=== PATIENT | female | born 1970 | race Caucasian/White ===

== ENCOUNTER 2018-04-26 06:20 | Day surgery (SDC) | payer OTHER | END 2018-04-26 09:05 | disposition home or self-care (01) | LOC: AMB-ENDOS 06:20 | DX: K57.30 Diverticulosis of large intestine without perforation or abscess without bleeding (principal); K64.8 Other hemorrhoids; Z12.11 Encounter for screening for malignant neoplasm of colon ==

== ENCOUNTER 2023-12-30 07:30 | Inpatient (IN) | payer OTHER ==
[~2023-12-30] VITALS: Ht 170.2 cm; Wt 84.4 kg
[2023-12-31 10:02] LABS: PH,URINE 7.5 (5.0-8.0); URINE APPEARANCE Clear; URINE BILIRRUBIN Negative (NEGATIVE); URINE BLOOD Negative; URINE COLOR Yellow; URINE GLUCOSE Negative (NEGATIVE); URINE LEUKOCYTE Negative; URINE NITRATE Negative; URINE PROTEIN Negative (NEGATIVE); URINE UROBILINOGEN 0.2 E.U./dl
[2023-12-31 10:03] LABS: URINE BACTERIA 1649.3 uL (0.0-1933); URINE EPITHELIAL CELLS 15.7 uL (0.0-38.8); URINE RBC 11.4 uL (0.0-20.8); URINE WBC 14.2 uL (0.0-23.2)
[2023-12-31 10:05] LABS: HEMATOCRIT 40.9 % (36.0-45.00); HEMOGLOBIN 13.7 g/dL (12.0-15.00); MEAN CELL VOLUME 83.2 fL (80.00-100.00); MEAN CORPUSCULAR HEMOGLOBIN 27.8 pg (27.00-32.0); MEAN CORPUSCULAR HGB CONC 33.5 g/dl (32.0-36.0); PLATELET COUNT 324 K/uL (150-450); RED BLOOD COUNT 4.91 M/uL (4.00-6.00); RED CELL DISTRIBUTION WIDTH 13.4 % (11.5-14.5)
[2023-12-31 10:26] LABS: INR 1.01; PARTIAL THROMBOPLASTIN TIME 33.4 SECONDS (22.0-34.0)
[2023-12-31 10:30] LABS: PROTHROMBIN TIME 10.6 SECONDS (9.0-11.5)
[2023-12-31 10:41] LABS: ALBUMIN 3.7 gm/dL (3.4-5.0); BILIRUBIN TOTAL 0.46 mg/dL (0.3-1.2); CALCIUM 9.3 mg/dL (8.5-10.1); CREATININE SERUM 0.68 mg/dL (0.55-1.02); GFR 90.86; GLOBULINA 3.8 G/DL (2.4-3.5); POTASSIUM 4.16 mEq/L (3.5-5.1); TOTAL PROTEIN 7.5 gm/dL (6.4-8.2)
[2024-01-04] MEDS ORDERED: KETOROLAC TROMETHAMINE 60 MG VIAL IM ONE ×2 (11:00→12:15)
[2024-01-04] MEDS ORDERED: POVIDONE-IODINE 3 EA MED..SWAB TOP ONE (11:01)
[2024-01-04] MEDS ORDERED: VANCOMYCIN HCL 1,000 MG VIAL ONE (11:01)
[2024-01-04] MEDS ORDERED: CEFAZOLIN SODIUM 1,000 MG VIAL ONE (11:08)
[2024-01-04] MEDS ORDERED: TRANEXAMIC ACID 100MG/1ML (1000MG) AMPUL IV ONE ×3 (11:10→12:15)
[2024-01-04] MEDS ORDERED: CEFAZOLIN SODIUM 1,000 MG VIAL IV ONE (12:15)
[2024-01-04] MEDS ORDERED: MORPHINE SULFATE 4 MG/ML CARTRIDGE IV ONE (12:15)
[2024-01-04] MEDS ORDERED: VANCOMYCIN HCL 1,000 MG VIAL IR ONE (12:15)
[2024-01-04] MEDS ORDERED: OxyCODONE HCL 5 MG TABLET (ROXICODONE) PO PRN (13:00)
[2024-01-04] MEDS ORDERED: ONDANSETRON HCL 2 MG/ML VIAL IV PRN (13:00)
[2024-01-04] MEDS ORDERED: MORPHINE SULFATE 4 MG/ML CARTRIDGE IV PRN (13:00)
[2024-01-04] MEDS ORDERED: SODIUM CHLORIDE 0.45 % 1,000 ML IV SCH (13:00)
[2024-01-04] MEDS ORDERED: PROMETHAZINE HCL 50 MG/ML AMPUL ONE (13:51)
[2024-01-04] MEDS ORDERED: CEFAZOLIN SODIUM 1,000 MG VIAL IV SCH (17:00)
[2024-01-04] MEDS ORDERED: GABAPENTIN 300 MG CAPSULE PO SCH (17:00)
[2024-01-04] MEDS ORDERED: ACETAMINOPHEN 500 MG GEL..CAP PO SCH (18:00)
[2024-01-05 06:17] LABS: HEMATOCRIT 35.7 % (36.0-45.00); HEMOGLOBIN 11.9 g/dL (12.0-15.00); MEAN CELL VOLUME 85.1 fL (80.00-100.00); MEAN CORPUSCULAR HEMOGLOBIN 28.5 pg (27.00-32.0); MEAN CORPUSCULAR HGB CONC 33.4 g/dl (32.0-36.0); PLATELET COUNT 222 K/uL (150-450); RED BLOOD COUNT 4.19 M/uL (4.00-6.00); RED CELL DISTRIBUTION WIDTH 13.2 % (11.5-14.5)
[2024-01-05] MEDS ORDERED: DUI500 PO (07:49)
[2024-01-05] MEDS ORDERED: ELIQUIS2.5 MG PO (07:49)
[2024-01-05] MEDS ORDERED: PERCOCET 5-3251 EACH PO (07:49)
[2024-01-05] MEDS ORDERED: NEURONTIN300 MG PO (08:14)
[2024-01-05] MEDS ORDERED: APIXABAN 2.5 MG TABLET PO SCH (09:00)
[2024-01-05] MEDS ORDERED: SENNOSIDES 1 TAB TABLET PO SCH (09:00)
[2024-01-05] MEDS ORDERED: HUMIRA40 MG/0.2 SQ (13:17)
[2024-01-05] MEDS ORDERED: TREXALL5 MG (13:18)
[2024-01-05] MEDS ORDERED: Cyanocobalamin/Mecobalamin 1 TAB.SL SL SCH (13:22)
[2024-01-05] MEDS ORDERED: VITAMIN B COMPLEX 1 EACH PO SCH (13:22)
[2024-01-05] MEDS ORDERED: SOD FERRIC GLUC COMPLX/SUCROSE 62.5 MG/5 ML AMPUL IV SCH (13:22)
[2024-01-06 06:17] LABS: HEMATOCRIT 32.4 % (36.0-45.00); HEMOGLOBIN 10.8 g/dL (12.0-15.00); MEAN CELL VOLUME 84.4 fL (80.00-100.00); MEAN CORPUSCULAR HEMOGLOBIN 28.2 pg (27.00-32.0); MEAN CORPUSCULAR HGB CONC 33.4 g/dl (32.0-36.0); PLATELET COUNT 226 K/uL (150-450); RED BLOOD COUNT 3.84 M/uL (4.00-6.00); RED CELL DISTRIBUTION WIDTH 13.2 % (11.5-14.5)
[2024-01-06] MEDS ORDERED: IRON FUM,PS/FOLIC ACID/VITC/B3 1 CAP CAPSULE PO SCH (09:00)
== END 2024-01-06 16:11 | DRG 470 ==
LOC: SURG 01-04 06:37 → O/R 01-04 06:37 → SURH 01-04 07:45 → OB/GYN 01-04 14:08 → SURG 01-04 17:57
PROVIDERS: ADMIT Orthopaedic Surgery; ATTEND Orthopaedic Surgery
PROC: 0MNN0ZZ Release Right Knee Bursa and Ligament, Open Approach (ICD-10-PCS; 2024-01-04)
PROC: 0SRC0J9 Replacement of Right Knee Joint with Synthetic Substitute, Cemented, Open Approach (ICD-10-PCS; principal; 2024-01-04 08:45)
DX: M17.11 Unilateral primary osteoarthritis, right knee (principal); D62 Acute posthemorrhagic anemia; M22.11 Recurrent subluxation of patella, right knee